=== PATIENT | female | born 1945 | race Caucasian/White ===

== ENCOUNTER → 2016-12-10 | Outpatient (CLI) | payer OTHER ==
[~2016-12-10] MED LIST: ANTIVERT25 MG PO; ATIVAN1 MG PO; CIPROFLOXACIN500 M1 PO; Cosopt 0.5% Ophth So BOTH EYES; DORZOLAMIDE-TIM10 ML BOTH EYES; EFFEXOR XR75 MG PO; Ecotrin PO; SYNTHROID75 MCG PO; SYNTHROID88 MCG PO
== END | disposition home or self-care (01) ==
LOC: RAD 13:20
DX: M16.11 Unilateral primary osteoarthritis, right hip (principal)
CPT/HCPCS: 73502

== ENCOUNTER 2017-03-06 15:59 | Emergency (ER) | payer OTHER ==
[~2017-03-06] VITALS: Ht 170.2 cm; Wt 69.3 kg
[2017-03-06 16:44] LABS: EOSINOPHIL (%) 1.6 % (0-5); EOSINOPHIL COUNT 0.1 K/uL (0-0.3); HEMATOCRIT 42.4 % (36.0-46.0); IMMATURE GRANULOCYTE (%) 0.4 % (0.0-0.7); INSTRUMENT ABS NEUTROPHIL CT 3.2 K/uL; LYMPHOCYTE COUNT 1.7 K/uL (1.0-2.8); MCH 30.8 PG (29.0-34.0); MCHC 32.3 G/DL (30.0-36.0); MCV 95.3 FL (83-99); MEAN PLAT.VOLUME 9.8 uM^3 (9.5-12.4); MONOCYTE (%) 7.9 % (3-12); MONOCYTE COUNT 0.4 K/uL (0-0.8); NEUTROPHIL (%) 57.9 % (45-76); NEUTROPHIL COUNT 3.2 K/uL (1.8-6.4); PLATELET COUNT 255 K/uL (156-360); RBC DIS.WIDTH-SD 42.4 % (39-53); RED BLOOD COUNT 4.45 M/uL (3.80-5.20); WHITE BLOOD COUNT 5.5 K/uL (4.1-10.2)
[2017-03-06 16:54] LABS: CHLORIDE 106 mEq/L (99-109); POTASSIUM 4.5 mEq/L (3.7-5.4); SODIUM 140 mEq/L (136-147)
[2017-03-06 16:56] LABS: GLUCOSE 101 mg/dL (70-99)
[2017-03-06 16:57] LABS: ANION GAP 11 MEQ/L (2-14)
[2017-03-06 16:58] LABS: TOTAL BILIRUBIN 0.4 mg/dL (0.0-1.0)
[2017-03-06 16:59] LABS: ALKALINE PHOSPHATASE 91 IU/L (3-129)
[2017-03-06 17:00] LABS: GFR ESTIMATE (CALCULATED) > 59 mL/min/
[2017-03-06 17:01] LABS: UREA NITROGEN (BUN) 13 mg/dL (9-23)
[2017-03-06 17:03] LABS: LIPASE 43 U/L (1.0-51.0)
[2017-03-06 17:05] LABS: TROP-I INTERPRETATION NEGATIVE; TROPONIN-I < 0.01 ng/mL (0.0-0.30)
[2017-03-06 18:43] LABS: ADD MIUA? NO; BILIRUBIN NEGATIVE; BLOOD NEGATIVE; COLOR STRAW ((YELLOW)); GLUCOSE (STRIP) NEGATIVE; KETONES NEGATIVE; LEUKOCYTES NEGATIVE; NITRITE NEGATIVE; PROTEIN (STRIP) NEGATIVE; SPECIFIC GRAVITY 1.008 (1.000-1.030); UROBILINOGEN 0.2 MG/DL (0.2-1.0)
[2017-03-06] MEDS ORDERED: ZOFRAN ODT4 MG PO (19:47)
[2017-03-06 19:56] LABS: TROP-I INTERPRETATION NEGATIVE; TROPONIN-I < 0.01 ng/mL (0.0-0.30)
[2017-03-06 20:08] VITALS: BP 122/71
== END 2017-03-06 20:09 | disposition home or self-care (01) ==
LOC: EME 15:59
PROVIDERS: Physician Assistant
DX: R11.0 Nausea (principal); R53.1 Weakness; R42 Dizziness and giddiness; J02.9 Acute pharyngitis, unspecified; R05 Cough; E03.9 Hypothyroidism, unspecified
CPT/HCPCS: 71020; 80053; 81003; 83690; 84443; 84484; 85025; 93005; 99281; 99284; J7030

== ENCOUNTER → 2017-11-28 | Outpatient (CLI) | payer OTHER ==
[~2017-11-28] MED LIST changes: +ZOFRAN ODT4 MG PO
== END | disposition home or self-care (01) ==
LOC: RAD 15:31
DX: K57.30 Diverticulosis of large intestine without perforation or abscess without bleeding (principal); N28.1 Cyst of kidney, acquired
CPT/HCPCS: 74176